=== PATIENT | male | born 1995 | race African-American/Black ===

== ENCOUNTER 2018-09-07 21:59 | Emergency (ER) | payer BC ==
[~2018-09-07] VITALS: Ht 188 cm; Wt 97.7 kg
[2018-09-07] MEDS ORDERED: IBUPROFEN 600 MG TABLET PO ONE (23:00)
[2018-09-07] MEDS ORDERED: AMOX TR/POT CLAV 875 MG/125 MG TABLET PO ONE (23:00)
[2018-09-07 23:17] VITALS: BP 142/84
== END 2018-09-07 23:20 | disposition home or self-care (01) ==
LOC: EMS 22:03
DX: L08.89 Other specified local infections of the skin and subcutaneous tissue (principal); R22.0 Localized swelling, mass and lump, head; F12.90 Cannabis use, unspecified, uncomplicated

== ENCOUNTER 2021-07-20 20:54 | Emergency (ER) | payer BC, OTHER ==
[~2021-07-20] VITALS: Ht 188 cm; Wt 106.8 kg
[2021-07-21] MEDS ORDERED: CEPH500C3 PO (00:55)
[2021-07-21] MEDS ORDERED: NEOMYCIN/BACITRACIN/POLYMYXIN B OINTMENT PACKET TP ONE (01:00)
[2021-07-21 01:05] VITALS: BP 137/71
== END 2021-07-21 01:12 | disposition home or self-care (01) ==
LOC: EMS 20:57
DX: T22.212A Burn of second degree of left forearm, initial encounter (principal); F12.90 Cannabis use, unspecified, uncomplicated; X11.8XXA Contact with other hot tap-water, initial encounter; Y93.89 Activity, other specified; Y92.89 Other specified places as the place of occurrence of the external cause; Y99.8 Other external cause status
CPT/HCPCS: 16020; 99283

== ENCOUNTER 2025-01-08 23:05 | Emergency (ER) | payer SELFPAY ==
[~2025-01-08] VITALS: Ht 188 cm; Wt 97.7 kg
[~2025-01-08 23:05] MED LIST: CEPH-558 PO
[2025-01-08 23:13] VITALS: BP 111/67; PULSE 86; RESP 15; TEMP 97.9; O2SAT 99
[2025-01-09] MEDS ORDERED: AMOX250C4 PO (01:54)
== END 2025-01-09 02:02 | disposition home or self-care (01) ==
LOC: EMS 23:27
DX: K08.89 Other specified disorders of teeth and supporting structures (principal); F12.90 Cannabis use, unspecified, uncomplicated; Z79.899 Other long term (current) drug therapy
CPT/HCPCS: 99283; Z7502